=== PATIENT | male | born 1960 | race Caucasian/White ===

== ENCOUNTER 2023-07-18 20:05 | Emergency (ER) | payer BC ==
[~2023-07-18] VITALS: Ht 172.7 cm; Wt 58.0 kg
[2023-07-18 20:16] VITALS: TEMP 97.6
[2023-07-18] MEDS: ipratropium/albuterol 3ml nebule NEB ONE (20:16)
[2023-07-18 20:17] VITALS: PULSE 111; RESP 25; O2SAT 100
[2023-07-18 20:22] VITALS: PULSE 103; RESP 31; O2SAT 100
[2023-07-18 20:29] VITALS: PULSE 100; RESP 22; O2SAT 100
[2023-07-18] MEDS: normal saline 1000ML IV soln IVB ONE (20:30)
[2023-07-18 20:31] LABS: BASOPHILS # (AUTO) 0.1 X10'3 (0-0.2); EOSINOPHILS # (AUTO) 0.3 X10'3 (0-0.9); HEMATOCRIT 42.5 % (42.0-52.0); HEMOGLOBIN 15.1 g/dl (14.0-17.9); MEAN CORPUSCULAR HEMOGLOBIN 37.2 PG (27.0-31.0); MEAN CORPUSCULAR HGB CONC 35.5 g/dL (33.0-36.5); MEAN CORPUSCULAR VOLUME 104.8 FL (78-98); MONOCYTES # (AUTO) 0.6 X10'3 (0-0.9); MONOCYTES % (AUTO) 7.3 % (2-12); NEUTROPHILS # (AUTO) 5.6 X10'3 (1.8-7.7); NEUTROPHILS % (AUTO) 64.7 % (42-75); PLATELET COUNT 363 X10'3 (140-440); RED BLOOD COUNT 4.06 X10'6 (4.70-6.10); RED CELL DISTRIBUTION WIDTH 13.2 % (11.5-14.5); WHITE BLOOD COUNT 8.7 X10'3 (4.5-11.0)
[2023-07-18] MEDS: methylPREDNISolone sod succ 125mg/2ml vial IV ONE (20:31)
[2023-07-18] MEDS: azithromycin/NS 500mg/250ml 250 ML IV ONE (20:33)
[2023-07-18 20:40] LABS: PROTHROMBIN TIME 10.5 SECONDS (9.0-12.0)
[2023-07-18 20:51] LABS: ALBUMIN 3.9 G/DL (3.4-5.0); ANION GAP 9 (8-16); BLOOD UREA NITROGEN 10 MG/DL (7-18); CALCIUM 8.4 MG/DL (8.5-10.1); CHLORIDE 102 MMOL/L (99-107); CREATININE 0.83 MG/DL (0.60-1.10); GLUCOSE 97 MG/DL (70-104); POTASSIUM 3.9 MMOL/L (3.5-5.1); PRO BRAIN NATRIURETIC PEPTIDE 37 PG/ML (0-125); SODIUM 137 MMOL/L (135-145); TOTAL CARBON DIOXIDE 26.4 MMOL/L (24-32); eCRCL 77 ML/MIN; eGFR > 90 ML/MIN
[2023-07-18] MEDS ORDERED: PRED20TA PO (23:25)
[2023-07-18] MEDS ORDERED: AZIT-164 PO (23:25)
[2023-07-18] MEDS: acetaminophen 325mg tablet PO ONE ×2 (23:31→23:38)
[2023-07-18 23:47] VITALS: BP 136/83; PULSE 82; RESP 21; O2SAT 95
== END 2023-07-18 23:56 | disposition home or self-care (01) ==
LOC: ER 20:06
DX: J44.1 Chronic obstructive pulmonary disease with (acute) exacerbation (principal); Z20.822 Contact with and (suspected) exposure to COVID-19; Z79.2 Long term (current) use of antibiotics; Z79.899 Other long term (current) drug therapy
CPT/HCPCS: 36415; 71045; 80048; 83605; 83880; 84484; 85025; 85610; 87040; 87502; 87503; 87811; 93005; 94640; 94660; 96365; 96375; 99291; J0456; J2930; J7030; J7040

== ENCOUNTER 2023-08-18 07:06 | Inpatient (IN) | payer BC ==
[~2023-08-18] VITALS: Ht 175.3 cm; Wt 63.0 kg
[2023-08-18] MEDS ORDERED: AZIT-164 PO (07:25)
[2023-08-18] MEDS: ipratropium/albuterol 3ml nebule NEB ONE (07:31)
[2023-08-18 07:34] VITALS: PULSE 83; PULSE 88; RESP 16; RESP 18; O2SAT 100
[2023-08-18] MEDS: azithromycin 250mg tablet PO ONE (07:39)
[2023-08-18] MEDS: dexamethasone 4mg tablet PO ONE (07:40)
[2023-08-18] MEDS ORDERED: FLUT1BLS4 INH (09:32)
[2023-08-18] MEDS ORDERED: ALBU2.5V10 INH (09:32)
[2023-08-18] MEDS ORDERED: EPIN11.7 INH (09:32)
[2023-08-18] MEDS: CefTRIAXone 2gm/D5W 50ml BAG 50 ML IV ONE (09:43)
[2023-08-18] MEDS: normal saline 1000ml 1,000 ML IV ONE (09:43)
[2023-08-18] MEDS: normal saline 1000ML IV soln IVB ONE (09:43)
[2023-08-18] MEDS: methylPREDNISolone sod succ 125mg/2ml vial IV ONE (09:43)
[2023-08-18 11:26] LABS: eGFR > 90 ML/MIN
[2023-08-18 11:30] LABS: BASOPHILS % (AUTO) 0.3 % (0-1); EOSINOPHILS % (AUTO) 0.1 % (0-6); HEMATOCRIT 40.7 % (42.0-52.0); HEMOGLOBIN 14.3 g/dl (14.0-17.9); LYMPHOCYTES # (AUTO) 0.4 X10'3 (1.1-4.8); LYMPHOCYTES % (AUTO) 4.4 % (21-51); MEAN CORPUSCULAR HEMOGLOBIN 37.6 PG (27.0-31.0); MEAN CORPUSCULAR HGB CONC 35.1 g/dL (33.0-36.5); MEAN CORPUSCULAR VOLUME 106.9 FL (78-98); MEAN PLATELET VOLUME 6.6 FL (7.4-10.4); MONOCYTES # (AUTO) 0.3 X10'3 (0-0.9); MONOCYTES % (AUTO) 3.3 % (2-12); NEUTROPHILS # (AUTO) 8.5 X10'3 (1.8-7.7); NEUTROPHILS % (AUTO) 91.9 % (42-75); PLATELET COUNT 253 X10'3 (140-440); RED BLOOD COUNT 3.81 X10'6 (4.70-6.10); RED CELL DISTRIBUTION WIDTH 13.4 % (11.5-14.5); WHITE BLOOD COUNT 9.2 X10'3 (4.5-11.0)
[2023-08-18 11:33] LABS: ALBUMIN 3.8 G/DL (3.4-5.0); ANION GAP 9 (8-16); BLOOD UREA NITROGEN 8 MG/DL (7-18); BUN/CREATININE RATIO 11.8 (10.0-20.0); CALCIUM 9.6 MG/DL (8.5-10.1); CHLORIDE 95 MMOL/L (99-107); CREATININE 0.68 MG/DL (0.60-1.10); GLUCOSE 111 MG/DL (70-104); MAGNESIUM 2.2 MG/DL (1.5-2.4); POTASSIUM 3.4 MMOL/L (3.5-5.1); SODIUM 133 MMOL/L (135-145); TOTAL CARBON DIOXIDE 28.9 MMOL/L (24-32); eCRCL 102 ML/MIN
[2023-08-18] MEDS: normal saline 1000ml 1,000 ML IV SCH (12:30)
[2023-08-18] MEDS ORDERED: potassium Cl 40MEQ/1/2NS 520ml 520 ML IV PRN (12:30)
[2023-08-18] MEDS ORDERED: acetaminophen 325mg tablet PO PRN ×2 (12:30)
[2023-08-18] MEDS ORDERED: potassium Cl 20 mEq SR tablet PO PRN (12:30)
[2023-08-18] MEDS ORDERED: magnesium 4gm in 100ml NS 100 ML IV PRN (12:30)
[2023-08-18] MEDS ORDERED: morphine 2 MG/ML inj. syringe IV PRN (12:30)
[2023-08-18] MEDS ORDERED: ondansetron/PF 4mg/2ml inj IV PRN (12:30)
[2023-08-18] MEDS ORDERED: magnesium 2GM in 50ml NS 50 ML IV PRN (12:30)
[2023-08-18] MEDS ORDERED: magnesium Cl slow-release 64mg tablet PO PRN (12:30)
[2023-08-18] MEDS ORDERED: iohexol 350MG/ML 100ml bottle IV ONE (12:45)
[2023-08-18] MEDS: lisinopril 10 MG tablet PO STA (14:46)
[2023-08-18 15:18] LABS: ABG BASE EXCESS 2.1 mmol/L (-2.0-2.0); ABG HCO3 25.2 mmol/L (22.0-26.0); ABG PH (T) 7.476 (7.340-7.440); ABG PO2 (T) 61.7 mmHg (75.0-100.0); ALLEN'S TEST POSITIVE; FCOHb 0.4 % (0.0-3.9); FMetHb 0.2 % (0.0-1.5); FO2Hb 92.4 % (94-97); MODE NASAL CANNULA; TOTAL HEMOGLOBIN 15.4 G/dl (14.0-17.9)
[2023-08-18] MEDS: LORazepam 0.5 MG tablet PO PRN (16:21)
[2023-08-18 18:00] VITALS: BP 138/89; PULSE 71; RESP 16; TEMP 97.8; O2SAT 98
[2023-08-18 20:00] VITALS: RESP 16; O2SAT 98
[2023-08-18 20:11] VITALS: PULSE 78; RESP 2; RESP 20; O2SAT 96
[2023-08-18] MEDS: heparin, porcine 5000 units/ml vial SQ SCH (20:33)
[2023-08-18] MEDS: methylPREDNISolone sod succ 125mg/2ml vial IV SCH (20:34)
[2023-08-18] MEDS: potassium Cl 20 mEq SR tablet PO PRN (21:10)
[2023-08-18 22:00] VITALS: BP 129/88; PULSE 89; RESP 20; TEMP 97.7; O2SAT 99
[2023-08-19] VITALS (11 sets, daily range): BP systolic 121–152; BP diastolic 80–95; PULSE 68–88; RESP 16–23; TEMP 97.6–98.4; O2SAT 93–99
[2023-08-19 07:10] LABS: BASOPHILS % (AUTO) 0.1 % (0-1); EOSINOPHILS % (AUTO) 0 % (0-6); HEMATOCRIT 39.4 % (42.0-52.0); HEMOGLOBIN 13.9 g/dl (14.0-17.9); LYMPHOCYTES # (AUTO) 0.8 X10'3 (1.1-4.8); LYMPHOCYTES % (AUTO) 11.8 % (21-51); MEAN CORPUSCULAR HEMOGLOBIN 37.1 PG (27.0-31.0); MEAN CORPUSCULAR HGB CONC 35.1 g/dL (33.0-36.5); MEAN CORPUSCULAR VOLUME 105.5 FL (78-98); MEAN PLATELET VOLUME 6.1 FL (7.4-10.4); MONOCYTES # (AUTO) 0.7 X10'3 (0-0.9); MONOCYTES % (AUTO) 10.3 % (2-12); NEUTROPHILS % (AUTO) 77.8 % (42-75); PLATELET COUNT 278 X10'3 (140-440); RED BLOOD COUNT 3.74 X10'6 (4.70-6.10); RED CELL DISTRIBUTION WIDTH 13.2 % (11.5-14.5); WHITE BLOOD COUNT 6.4 X10'3 (4.5-11.0)
[2023-08-19] MEDS: albuterol 2.5 MG/3 ML nebule NEB PRN (07:12)
[2023-08-19 07:28] LABS: ALANINE AMINOTRANSFERASE 30 U/L (12-78); ALBUMIN 2.9 G/DL (3.4-5.0); ALBUMIN/GLOBULIN RATIO 0.8 (1.1-1.5); ALKALINE PHOSPHATASE 81 IU/L (46-116); ANION GAP 6 (8-16); ASPARTATE AMINO TRANSFERASE 19 U/L (10-37); BILIRUBIN,TOTAL 0.6 MG/DL (0.1-1.0); BLOOD UREA NITROGEN 12 MG/DL (7-18); BUN/CREATININE RATIO 18.8 (10.0-20.0); CALCIUM 8.9 MG/DL (8.5-10.1); CHLORIDE 103 MMOL/L (99-107); CREATININE 0.64 MG/DL (0.60-1.10); GLUCOSE 109 MG/DL (70-104); SODIUM 138 MMOL/L (135-145); TOTAL CARBON DIOXIDE 29.5 MMOL/L (24-32); TOTAL PROTEIN 6.5 G/DL (6.4-8.2); eCRCL 108 ML/MIN; eGFR > 90 ML/MIN
[2023-08-19] MEDS: CefTRIAXone 2gm/D5W 50ml BAG 50 ML IV SCH (08:40)
[2023-08-19] MEDS: lisinopril 10 MG tablet PO SCH (08:43)
[2023-08-19] MEDS: HYDROcodone/acetaminophen 5mg/325mg tablet PO PRN (21:41)
[2023-08-20] VITALS (7 sets, daily range): BP systolic 117–123; BP diastolic 76–83; PULSE 64–79; RESP 16–20; TEMP 98.1–98.8; O2SAT 93–100
[2023-08-20 07:11] LABS: BASOPHILS % (AUTO) 0.1 % (0-1); EOSINOPHILS % (AUTO) 0 % (0-6); HEMATOCRIT 38.3 % (42.0-52.0); HEMOGLOBIN 13.4 g/dl (14.0-17.9); LYMPHOCYTES # (AUTO) 0.4 X10'3 (1.1-4.8); LYMPHOCYTES % (AUTO) 5.8 % (21-51); MEAN CORPUSCULAR HEMOGLOBIN 36.7 PG (27.0-31.0); MEAN CORPUSCULAR VOLUME 104.9 FL (78-98); MEAN PLATELET VOLUME 5.9 FL (7.4-10.4); MONOCYTES # (AUTO) 0.6 X10'3 (0-0.9); MONOCYTES % (AUTO) 8.4 % (2-12); NEUTROPHILS # (AUTO) 6.2 X10'3 (1.8-7.7); NEUTROPHILS % (AUTO) 85.7 % (42-75); PLATELET COUNT 337 X10'3 (140-440); RED BLOOD COUNT 3.65 X10'6 (4.70-6.10); RED CELL DISTRIBUTION WIDTH 13.2 % (11.5-14.5); WHITE BLOOD COUNT 7.2 X10'3 (4.5-11.0)
[2023-08-20 07:30] LABS: ALANINE AMINOTRANSFERASE 24 U/L (12-78); ALBUMIN 2.8 G/DL (3.4-5.0); ALBUMIN/GLOBULIN RATIO 0.8 (1.1-1.5); ALKALINE PHOSPHATASE 74 IU/L (46-116); ANION GAP 7 (8-16); ASPARTATE AMINO TRANSFERASE 16 U/L (10-37); BILIRUBIN,TOTAL 0.5 MG/DL (0.1-1.0); BLOOD UREA NITROGEN 13 MG/DL (7-18); BUN/CREATININE RATIO 24.1 (10.0-20.0); CALCIUM 8.7 MG/DL (8.5-10.1); CHLORIDE 102 MMOL/L (99-107); CREATININE 0.54 MG/DL (0.60-1.10); GLUCOSE 122 MG/DL (70-104); POTASSIUM 4.7 MMOL/L (3.5-5.1); SODIUM 136 MMOL/L (135-145); TOTAL CARBON DIOXIDE 27.4 MMOL/L (24-32); TOTAL PROTEIN 6.2 G/DL (6.4-8.2); eCRCL 128 ML/MIN; eGFR > 90 ML/MIN
[2023-08-20] MEDS ORDERED: PRED20TA PO (13:20)
[2023-08-20] MEDS ORDERED: ALPR-624 PO (13:20)
[2023-08-20] MEDS ORDERED: LISI10TA27 PO (13:20)
[2023-08-20] MEDS ORDERED: NICO-731 TOP (13:23)
== END 2023-08-20 16:50 | disposition home health service (06) | DRG 189 ==
LOC: ER 07:06 → ED HOLD 12:36 → ORTHO 4S 16:35
PROVIDERS: ADMIT Internal Medicine; ATTEND Internal Medicine
PROC: B32T1ZZ Computerized Tomography (CT Scan) of Left Pulmonary Artery using Low Osmolar Contrast (ICD-10-PCS; principal; 2023-08-18)
PROC: B3201ZZ Computerized Tomography (CT Scan) of Thoracic Aorta using Low Osmolar Contrast (ICD-10-PCS; 2023-08-18)
PROC: B32S1ZZ Computerized Tomography (CT Scan) of Right Pulmonary Artery using Low Osmolar Contrast (ICD-10-PCS; 2023-08-18)
DX: J96.21 Acute and chronic respiratory failure with hypoxia (principal); J44.1 Chronic obstructive pulmonary disease with (acute) exacerbation; C34.92 Malignant neoplasm of unspecified part of left bronchus or lung; C34.91 Malignant neoplasm of unspecified part of right bronchus or lung; Z66 Do not resuscitate; J40 Bronchitis, not specified as acute or chronic; F41.9 Anxiety disorder, unspecified; G43.909 Migraine, unspecified, not intractable, without status migrainosus; G47.00 Insomnia, unspecified; Z87.01 Personal history of pneumonia (recurrent); Z72.0 Tobacco use
CPT/HCPCS: 36415; 36600; 71045; 71275; 80048; 80053; 82803; 83605; 83735; 84145; 84484; 85018; 85025; 87040; 87081; 93005; 93308; 94640; 94760; 96365; 96375; 97161; 97530; 97535; 99291; A4615; G0378; J0696; J1644; J2919; J3490; J7030; J7040; Q9967